=== PATIENT | male | born 1970 | race Two or more races ===

== ENCOUNTER 2021-06-20 17:11 | Emergency (ER) | payer OTHER ==
[~2021-06-20] VITALS: Ht 170.2 cm; Wt 81.6 kg
--- NOTE | 2021-06-20 17:15 | NUR ---
BIB SELF C/O ABDOMINAL PAIN SINCE YESTERDAY. AMBULATORY, AAOX4, IN PAIN 11/26. PLACED ON BED
--- NOTE | 2021-06-20 17:15 | NUR ---
AT BED SIDE
--- NOTE | 2021-06-20 17:20 | NUR ---
Note simoneone in EDM - 06/20/21 at 1800 by SONNYO BIB FRIEND C/O ABDOMINAL PAIN SINCE YESTERDAY. AMBULATORY, AAOX4, IN PAIN 11/26. PLACED ON BED
--- NOTE | 2021-06-20 17:21 | NUR ---
BLOOD DRAWN AND SENT TO LAB
[2021-06-20] MEDS ORDERED: IV NS 0.9% 1,000 ML BAG IV ONE (17:30)
[2021-06-20] MEDS ORDERED: ONDANSETRON HCL/PF 4 MG/2 ML VIAL IVP ONE (17:30)
[2021-06-20] MEDS ORDERED: ONDANSETRON HCL/PF 4 MG/2 ML VIAL ONE (17:38)
[2021-06-20 17:45] LABS: BASOPHILS % (AUTO) 0.2 % (0.0-2.0); EOSINOPHILS % (AUTO) 1.7 % (0.0-6.0); HEMATOCRIT 47 % (39-51); HEMOGLOBIN 16.3 g/dL (13.5-17.5); LYMPHOCYTES # (AUTO) 0.9 K/uL (0.8-4.8); LYMPHOCYTES % (AUTO) 14.9 % (20.0-44.0); MEAN CORPUSCULAR HGB CONC 34 g/dl (31.0-36.0); MEAN CORPUSCULAR VOLUME 92 fL (80-96); MONOCYTES # (AUTO) 0.6 K/uL (0.1-1.30); MONOCYTES % (AUTO) 9.2 % (2.0-12.0); NEUTROPHILS # (AUTO) 4.5 K/uL (1.8-8.9); PLATELET COUNT (AUTO) 271 K/uL (150-450); RED BLOOD CELL COUNT(AUTO) 5.16 MIL/uL (4.5-6.0); WHITE BLOOD COUNT (AUTO) 6.1 K/uL (4.3-11.0)
--- NOTE | 2021-06-20 17:50 | NUR ---
URINE SAMPLE SENT TO LAB
[2021-06-20] MEDS ORDERED: LIDOCAINE VISCOUS 2% UD 15 ML UDC ONE (18:14)
[2021-06-20] MEDS ORDERED: MAG HYDROX/AL HYDROX/SIMETH 30 ML UDC ONE (18:14)
[2021-06-20 18:15] LABS: ALBUMIN 3.7 g/dL (3.4-5.0); BILIRUBIN,TOTAL 0.7 mg/dL (0.2-1.0); CREATININE 0.9 mg/dL (0.6-1.3); POTASSIUM 4.2 mmol/L (3.5-5.1); TOTAL PROTEIN, SERUM 7.8 g/dL (6.4-8.2)
[2021-06-20] MEDS ORDERED: FAMOTIDINE/PF INJ 20 MG/2 ML VIAL IV ONE ×2 (18:15→18:30)
[2021-06-20] MEDS ORDERED: MORPHINE SULFATE INJ 4 MG/ML DISP.SYRIN ONE (18:15)
[2021-06-20] MEDS ORDERED: MORPHINE SULFATE INJ 2 MG/ML DISP.SYRIN IV ONE (18:30)
[2021-06-20] MEDS ORDERED: LIDOCAINE VISCOUS 2% UD 15 ML UDC MM ONE (18:30)
[2021-06-20] MEDS ORDERED: MAG HYDROX/AL HYDROX/SIMETH 30 ML UDC PO ONE (18:30)
[2021-06-20 19:35] LABS: BILIRUBIN,URINE NEGATIVE (NEGATIVE); COLOR,URINE YELLOW (YELLOW); LEUKOCYTE ESTERASE ,URINE NEGATIVE (NEGATIVE); NITRITE, URINE NEGATIVE (NEGATIVE); PH,URINE 5.5 (5.0-8.0); PROTEIN,URINE NEGATIVE (NEGATIVE); UGLUCOSE NEGATIVE (NEGATIVE); UROBILINOGEN,URINE 0.2 EU/dL (0.2)
[2021-06-20 19:50] LABS: BACTERIA,URINE None seen /HPF (None Seen); MUCUS,URINE Many /LPF (None Seen); RBC,URINE 0-2 /HPF (0-2); SQUAMOUS EPITHELIAL CELL,UR 0-2 /HPF (None Seen); WBC,URINE 0-2 /HPF (0-3)
[2021-06-20] MEDS ORDERED: ONDA4TAB5 PO (19:57)
[2021-06-20] MEDS ORDERED: FAMO-131 PO (19:57)
--- NOTE | 2021-06-20 20:40 | NUR ---
Patient discharged to home in stable condition. Written and verbal after care instructions given. Patient verbalizes understanding of instruction.IV line removed and PT ambulatory with steady gait
[2021-06-20 21:02] VITALS: BP 133/85
== END 2021-06-20 21:41 | disposition home or self-care (01) ==
LOC: ER 17:24
DX: R10.9 Unspecified abdominal pain (principal); Z60.2 Problems related to living alone
CPT/HCPCS: 36415; 74176; 80048; 80076; 81001; 83690; 85025; 96361; 96374; 96375; 99284; J2270; J2405; J3490; J7030

== ENCOUNTER 2021-09-04 21:14 | Emergency (ER) | payer OTHER ==
[~2021-09-04 21:14] MED LIST: FAMO-131 PO; ONDA4TAB5 PO
--- NOTE | 2021-09-04 22:30 | NUR ---
CALLED TO TRIAGE NO ANSWER
--- NOTE | 2021-09-04 22:50 | NUR ---
CALLED TO TRIAGE, NO RESPONSE.
== END 2021-09-04 23:00 | disposition home or self-care (01) ==
LOC: ER 21:15
DX: Z53.21 Procedure and treatment not carried out due to patient leaving prior to being seen by health care provider (principal)

== ENCOUNTER 2022-09-28 17:04 | Emergency (ER) | payer OTHER ==
[~2022-09-28] VITALS: Ht 165.1 cm; Wt 83.0 kg
[2022-09-28] MEDS ORDERED: KETOROLAC TROMETHAMINE INJ 30 MG/ML VIAL ONE (17:27)
[2022-09-28] MEDS ORDERED: CYCLOBENZAPRINE 10 MG TABLET ONE (17:27)
[2022-09-28] MEDS ORDERED: CYCLOBENZAPRINE 10 MG TABLET PO ONE (17:30)
[2022-09-28] MEDS ORDERED: KETOROLAC TROMETHAMINE INJ 60 MG/2 ML VIAL IM ONE (17:30)
[2022-09-28] MEDS ORDERED: CYCL5TAB PO (17:37)
[2022-09-28 17:43] VITALS: BP 116/79; TEMP 98.1; O2SAT 100
== END 2022-09-28 17:44 | disposition home or self-care (01) ==
LOC: ER 17:08
DX: M25.512 Pain in left shoulder (principal); Z60.2 Problems related to living alone
CPT/HCPCS: 99283; 96372; J1885